=== PATIENT | female | born 1970 | race American Indian/Alaskan Native ===

== ENCOUNTER 2021-10-01 18:56 | Emergency (ER) | payer SELFPAY ==
[2021-10-01] MEDS ORDERED: oxyCODONE /ACETAMINOPHEN 5-325MG TAB PO ONE (19:31)
[2021-10-01] MEDS ORDERED: ONDANSETRON 4 MG ODT TAB PO ONE (19:31)
[2021-10-01] MEDS ORDERED: IBUPROFEN 600 MG TAB PO ONE (19:31)
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
[2021-10-01 21:48] VITALS: BP 112/67
== END 2021-10-01 21:48 | disposition home or self-care (01) ==
LOC: ED 18:56
DX: M62.838 Other muscle spasm (principal); M54.2 Cervicalgia; M54.42 Lumbago with sciatica, left side; F43.10 Post-traumatic stress disorder, unspecified; F17.200 Nicotine dependence, unspecified, uncomplicated; Z98.890 Other specified postprocedural states; Z79.899 Other long term (current) drug therapy; V89.2XXA Person injured in unspecified motor-vehicle accident, traffic, initial encounter; Y93.89 Activity, other specified; Y92.488 Other paved roadways as the place of occurrence of the external cause; Y99.8 Other external cause status
CPT/HCPCS: 70450; 72125; 72131; 99283; Q0162